=== PATIENT | male | born 1960 | race Caucasian/White ===

== ENCOUNTER 2017-01-01 07:11 | Emergency (ER) | payer OTHER ==
[~2017-01-01] VITALS: Ht 188 cm; Wt 95.0 kg
[2017-01-01 08:22] LABS: BLOOD UREA NITROGEN 19 mg/dL (7-18)
[2017-01-01 08:25] LABS: ASPARTATE AMINO TRANSFERASE 21 U/L (15-37)
[2017-01-01] MEDS ORDERED: SODIUM CHLORIDE FLUSH 10ML SYR IVF ONE (08:30)
[2017-01-01] MEDS ORDERED: SODIUM CHLORIDE 0.9% 1,000ML IVBOLUS ONE (08:30)
[2017-01-01] MEDS ORDERED: OMNIPAQUE 350 MG/ML, 100ML BOTTLE ONE (09:00)
[2017-01-01 11:48] VITALS: BP 150/34
== END 2017-01-01 11:51 | disposition home or self-care (01) ==
LOC: ED 08:05
DX: K57.30 Diverticulosis of large intestine without perforation or abscess without bleeding (principal); R33.9 Retention of urine, unspecified; N40.0 Benign prostatic hyperplasia without lower urinary tract symptoms; N32.89 Other specified disorders of bladder; I10 Essential (primary) hypertension
CPT/HCPCS: 36415; 51702; 74177; 80053; 81003; 83690; 85025; 96360; 99285; J7030; Q9967